=== PATIENT | male | born 1995 | race Caucasian/White ===

== ENCOUNTER 2017-02-05 20:07 | Emergency (ER) | payer SELFPAY ==
[2017-02-05 20:33] VITALS: BP 129/72
[2017-02-05] MEDS ORDERED: Sulfamethoxazole/Trimethoprim 800-160 MG Tab ONE (22:23)
== END 2017-02-05 22:35 | disposition home or self-care (01) ==
LOC: DL.ED 20:07
DX: S96.911A Strain of unspecified muscle and tendon at ankle and foot level, right foot, initial encounter (principal); X58.XXXA Exposure to other specified factors, initial encounter
CPT/HCPCS: 73590; 73600; 99283; A9270; 99281